=== PATIENT | female | born 1940 | race Caucasian/White ===

== ENCOUNTER 2017-08-03 17:15 | Emergency (ER) | payer MEDICARE ==
--- NOTE | 2017-08-03 18:33 | Diagnostic Imaging Report ---
History:Blurry vision Comparison studies:None Technique: Axial images were obtained from the skull base to the vertex. Coronal and sagittal images reconstructed from the axial data. Intravenous contrast: None Findings: Scalp/skull: No abnormalities. Extra-axial spaces: No masses. No fluid collections. Brain sulci: Mildly prominent. Ventricles: Mild compensatory dilatation. No hydrocephalus. Parenchyma: A few hypodensities in the supratentorial white matter are small vessel ischemic changes. No masses, hemorrhage, acute or chronic cortical vascular insults. Sellar/suprasellar region: No abnormalities. Craniocervical junction: Patent foramen magnum. No Chiari one malformation. Incidental findings: Atherosclerotic calcifications in the carotid siphons . Impression: No acute abnormalities. Chronic findings: 1. Mild generalized volume loss. 2. Mild supratentorial white matter small vessel ischemic changes. A preliminary report was given by neuroradiology fellow Dr. Kennedy at 6:32 PM on 08/03/2017. I have reviewed the images and agree with the findings in the preliminary report. Signed by: Dr. Lauren Canela M.D. on 08/03/2017 10:01 PM
[2017-08-03 19:55] LABS: ALBUMIN 3.8 g/dL (3.5-5.0); ANION GAP 13.5 mmol/L (8-16); CALCIUM 10.5 mg/dL (8.4-10.2); CREATININE, SERUM 1.23 mg/dL (0.57-1.11); POTASSIUM 3.5 mmol/L (3.5-5.1)
[2017-08-03] MEDS ORDERED: KETOROLAC TROMETHAMINE 30 MG/ML VIAL IV STA (21:10)
[2017-08-03] MEDS ORDERED: SODIUM CHLORIDE 0.9% 500ML 500 ML IV ONE (21:15)
== END 2017-08-03 22:10 | disposition home or self-care (01) ==
LOC: ER 17:15
DX: G44.1 Vascular headache, not elsewhere classified (principal)
CPT/HCPCS: 36415; 70450; 80053; 85651; 96360; 96374; 99283; J1885; J7040

== ENCOUNTER 2018-10-04 20:12 | Emergency (ER) | payer MEDICARE ==
[~2018-10-04] VITALS: Ht 165.1 cm; Wt 95.3 kg
--- OUTSIDE RECORDS SUMMARY | 2018-10-04 20:15 | XMS REPORT | Continuity of Care Document ---
Author Author [facility] Interface Address Unknown Phone Unavailable Problems Problem Status Onset Date Classification Date Reported Comments Source Medications Medication Details Route Status Patient Instructions Ordering Provider Order Date Source Allergies, Adverse Reactions, Alerts Substance Category Reaction Severity Reaction type Status Date Reported Comments Source Immunizations Immunization Date Given Site Status Last Updated Comments Source Results Order Name Results Value Reference Range Date Interpretation Comments Source Erythrocyte sedimentation rate by Westergren method Erythrocyte sedimentation rate by Westergren method 3 0 - 20 08/03/2017 [facility] Estimated glomerular filtration rate (GFR) determination Estimated glomerular filtration rate (GFR) determination 42 60 08/03/2017 [facility] Glucose measurement Glucose measurement 127 74 - 118 08/03/2017 [facility] Plasma globulin measurement (mass/volume) Plasma globulin measurement (mass/volume) 3.7 2.3 - 3.5 08/03/2017 [facility] Serum or plasma alanine aminotransferase measurement (enzymatic activity/volume) Serum or plasma alanine aminotransferase measurement (enzymatic activity/volume) 14 0 - 55 08/03/2017 [facility] Serum or plasma albumin measurement (mass/volume) Serum or plasma albumin measurement (mass/volume) 3.8 3.5 - 5.0 08/03/2017 [facility] Serum or plasma albumin/globulin mass ratio Serum or plasma albumin/globulin mass ratio 1.0 0.8 - 2.0 08/03/2017 [facility] Serum or plasma alkaline phosphatase measurement (enzymatic activity/volume) Serum or plasma alkaline phosphatase measurement (enzymatic activity/volume) 85 40 - 150 08/03/2017 [facility] Serum or plasma anion gap Serum or plasma anion gap 13.5 8 - 16 08/03/2017 [facility] Serum or plasma calcium measurement (mass/volume) Serum or plasma calcium measurement (mass/volume) 10.5 8.4 - 10.2 08/03/2017 [facility] Serum or plasma carbon dioxide, total measurement (moles/volume) Serum or plasma carbon dioxide, total measurement (moles/volume) 27 22 - 29 08/03/2017 [facility] Serum or plasma chloride measurement (moles/volume) Serum or plasma chloride measurement (moles/volume) 104 98 - 107 08/03/2017 [facility] Serum or plasma creatinine measurement (mass/volume) Serum or plasma creatinine measurement (mass/volume) 1.23 0.57 - 1.11 08/03/2017 [facility] Serum or plasma potassium measurement (moles/volume) Serum or plasma potassium measurement (moles/volume) 3.5 3.5 - 5.1 08/03/2017 [facility] Serum or plasma protein measurement (mass/volume) Serum or plasma protein measurement (mass/volume) 7.5 6.5 - 8.1 08/03/2017 [facility] Serum or plasma sodium measurement (moles/volume) Serum or plasma sodium measurement (moles/volume) 141 136 - 145 08/03/2017 [facility] Serum or plasma total bilirubin measurement (mass/volume) Serum or plasma total bilirubin measurement (mass/volume) 0.4 0.2 - 1.2 08/03/2017 [facility] Serum or plasma urea nitrogen measurement (mass/volume) Serum or plasma urea nitrogen measurement (mass/volume) 20 7 - 26 08/03/2017 [facility] Serum or plasma urea nitrogen/creatinine mass ratio Serum or plasma urea nitrogen/creatinine mass ratio 16 6 - 25 08/03/2017 [facility] Aspartate Amino Transf (AST/SGOT) 18 5 - 34 08/03/2017 [facility] Vital Signs Vital Sign Value Date Comments Source Encounters Location Location Details Encounter Type Encounter Number Reason For Visit Attending Provider ADM Date DC Date Status Source Departed Emergency Room [id number] BRIAN REAGAN MD 08/03/2017 08/03/2017 [facility] Procedures Procedure Code Date Perfomer Comments Source Computed tomography of brain without radiopaque contrast [id number] 08/03/2017 ABHINAV WESLEY [facility]
--- OUTSIDE RECORDS SUMMARY | 2018-10-04 20:15 | XMS REPORT ---
Author Author [facility] Address Unknown Phone Unavailable Care Team Providers Care Business Banking Manager Name Role Phone Antonio REAGAN Unavailable Unavailable Problems This patient has no known problems. Allergies, Adverse Reactions, Alerts This patient has no known allergies or adverse reactions. Medications This patient has no known medications. Encounters Start Date/Time End Date/Time Encounter Type Admission Type Attending Clinicians Care Facility Care Department Encounter ID 2018-10-04 07:14:00 2018-10-04 07:14:00 Outpatient [facility] 7500 Results Test Description Test Time Test Comments Text Results Atomic Results Result Comments CT BRAIN WO [place] [address] Patient Name: YADIRA CEJA MR #: [id number] : 1940 Age/Sex: 76/F Req #: [id number] Adm Physician: Ordered by: KAREN LA MD Report #: [id number] Location: ER Room/Bed: Procedure: [id number] CT/CT BRAIN WO Exam Date: 08/03/17 Exam Time: 1755 REPORT STATUS: Signed History:Blurry vision Comparison studies:None Technique: Axial images were obtained from the skull base to the vertex. Coronal and sagittal images reconstructed from the axial data. Intravenous contrast: None Findings: Scalp/skull: No abnormalities. Extra-axial spaces: No masses. No fluid collections. Brain sulci: Mildly prominent. Ventricles: Mild compensatory dilatation. No hydrocephalus. Parenchyma: A few hypodensities in the supratentorial white matter are small vessel ischemic changes. No masses, hemorrhage, acute or chronic cortical vascular insults. Sellar/suprasellar region: No abnormalities. Craniocervical junction: Patent foramen magnum. No Chiari one malformation. Incidental findings: Atherosclerotic calcifications in the carotid siphons . Impres duane: No acute abnormalities. Chronic findings: 1. Mild generalized volume loss. 2. Mild supratentorial white matter small vessel ischemic changes. A preliminary report was given by neuroradiology fellow Dr. Kennedy at 6:32 PM on 08/03/2017. I have reviewed the images and agree with the findings in the preliminary report. Signed by: Dr. Lauren Canela M.D. on 08/03/2017 10:01 PM Dictated By: LAUREN CANELA MD 00 Transcribed By: SOURAV on 08/03/172200 COPY TO: KAREN LA MD
[2018-10-04] MEDS ORDERED: METHYLPREDNISOLONE SOD SUCC 125 MG/2ML VIAL IM ONE (21:15)
[2018-10-04] MEDS ORDERED: DIPHENHYDRAMINE HCL 25 MG CAP PO ONE (21:15)
[2018-10-04] MEDS ORDERED: FAMOTIDINE 20 MG TAB PO ONE (21:15)
[2018-10-04 22:41] VITALS: BP 161/69
== END 2018-10-04 22:57 | disposition home or self-care (01) ==
LOC: ER 20:12
DX: R21 Rash and other nonspecific skin eruption (principal); L29.9 Pruritus, unspecified
CPT/HCPCS: 99282; J2930

== ENCOUNTER 2018-12-18 09:55 | Emergency (ER) | payer MEDICARE ==
[~2018-12-18] VITALS: Ht 165.1 cm; Wt 95.3 kg
--- OUTSIDE RECORDS SUMMARY | 2018-12-18 09:58 | XMS REPORT | Continuity of Care Document ---
Author Author [facility] Address Unknown Phone Unavailable Care Team Providers Care Avp Name Role Phone [employer] Unavailable Unavailable Problems No Data Provided for This Section Medications No Data Provided for This Section Allergies, Adverse Reactions, Alerts No Known Medication Allergies Immunizations No Data Provided for This Section Results Order Name Results Value Reference Range Date Interpretation Comments Source Erythrocyte sedimentation rate by Westergren method Erythrocyte sedimentation rate by Westergren method 3 0 - 20 08/03/2017 [facility] Estimated glomerular filtration rate (GFR) determination Estimated glomerular filtration rate (GFR) determination 42 60 08/03/2017 [facility] Glucose measurement Glucose measurement 127 74 - 118 08/03/2017 [facility] Plasma globulin measurement (mass/volume) Plasma globulin measurement (mass/volume) 3.7 2.3 - 3.5 08/03/2017 [facility] Serum or plasma alanine aminotransferase measurement (enzymatic activity/volume) Serum or plasma alanine aminotransferase measurement (enzymatic activity/volume) 14 0 - 55 08/03/2017 [facility] Serum or plasma albumin measurement (mass/volume) Serum or plasma albumin measurement (mass/volume) 3.8 3.5 - 5.0 08/03/2017 [facility] Serum or plasma albumin/globulin mass ratio Serum or plasma albumin/globulin mass ratio 1.0 0.8 - 2.0 08/03/2017 [facility] Serum or plasma alkaline phosphatase measurement (enzymatic activity/volume) Serum or plasma alkaline phosphatase measurement (enzymatic activity/volume) 85 40 - 150 08/03/2017 [facility] Serum or plasma anion gap Serum or plasma anion gap 13.5 8 - 16 08/03/2017 [facility] Serum or plasma calcium measurement (mass/volume) Serum or plasma calcium measurement (mass/volume) 10.5 8.4 - 10.2 08/03/2017 [facility] Serum or plasma carbon dioxide, total measurement (moles/volume) Serum or plasma carbon dioxide, total measurement (moles/volume) 27 22 - 29 08/03/2017 [facility] Serum or plasma chloride measurement (moles/volume) Serum or plasma chloride measurement (moles/volume) 104 98 - 107 08/03/2017 [facility] Serum or plasma creatinine measurement (mass/volume) Serum or plasma creatinine measurement (mass/volume) 1.23 0.57 - 1.11 08/03/2017 [facility] Serum or plasma potassium measurement (moles/volume) Serum or plasma potassium measurement (moles/volume) 3.5 3.5 - 5.1 08/03/2017 [facility] Serum or plasma protein measurement (mass/volume) Serum or plasma protein measurement (mass/volume) 7.5 6.5 - 8.1 08/03/2017 [facility] Serum or plasma sodium measurement (moles/volume) Serum or plasma sodium measurement (moles/volume) 141 136 - 145 08/03/2017 [facility] Serum or plasma total bilirubin measurement (mass/volume) Serum or plasma total bilirubin measurement (mass/volume) 0.4 0.2 - 1.2 08/03/2017 [facility] Serum or plasma urea nitrogen measurement (mass/volume) Serum or plasma urea nitrogen measurement (mass/volume) 20 7 - 26 08/03/2017 [facility] Serum or plasma urea nitrogen/creatinine mass ratio Serum or plasma urea nitrogen/creatinine mass ratio 16 6 - 25 08/03/2017 [facility] Aspartate Amino Transf (AST/SGOT) 18 5 - 34 08/03/2017 [facility] Pathology Reports No Data Provided for This Section Diagnostic Reports No Data Provided for This Section Consultation Notes No Data Provided for This Section Discharge Summaries No Data Provided for This Section History and Physicals No Data Provided for This Section Vital Signs No Data Provided for This Section Encounters Location Location Details Encounter Type Encounter Number Reason For Visit Attending Provider ADM Date DC Date Status Source Departed Emergency Room [id number] BRIAN REAGAN MD 08/03/2017 08/03/2017 [facility] Registered Emergency Room [id number] NERY VICTORIA MD 10/04/2018 [facility] Procedures Procedure Code Date Perfomer Comments Source Computed tomography of brain without radiopaque contrast [id number] 08/03/2017 ABHINAV [facility] Assessment and Plan No Data Provided for This Section Plan of Care Plan of Care Date Source Discharge Date 10/04/18 10:57pm Disposition HOME, SELF-CARE Condition at Discharge Stable Instructions/Education Provided Allergic Reaction Forms Provided Work/School Excuse Prescriptions See Medication Section Additional Instructions/Education take all medications as indicated follow up with form setter [employer] forms of choice follow up with your primary care doctor avoid seafood containing iodine- shrimp, crawfish. 10/04/2018 [facility] Discharge Date 08/03/17 10:10pm Disposition HOME, SELF-CARE Condition at Discharge Improved Instructions/Education Provided Headache Forms Provided Work/School Excuse Prescriptions See Medication Section Additional Instructions/Education TAKE TYLENOL AND/OR ADVIL DIRECTED ON LABEL FOR PAIN FOLLOW-UP WITH YOUR PRIMARY CARE PROVIDER, CALL FOR APPOINTMENT 08/03/2017 [facility] Social History Social History Date Source Smoking Status Start Date Stop Date Never Smoker 10/04/2018 [facility] Family History No Data Provided for This Section Advance Directives Order Name Results Value Date Source Advance Directives Advance Directives Directive Response Recorded Date/Time Does the patient have an advance directive? No 08/03/17 8:30pm If yes, is advance directive on file with [facility]? No 08/03/17 8:30pm If not on file with [facility] will patient provide a copy? Yes 08/03/17 8:30pm 10/04/2018 [facility] Advance Directives Advance Directives Directive Response Recorded Date/Time Does the patient have an advance directive? No 08/03/17 8:30pm If yes, is advance directive on file with [facility]? No 08/03/17 8:30pm If not on file with [facility] will patient provide a copy? Yes 08/03/17 8:30pm Do you have a Directive to Physician? No 08/03/17 8:30pm Do you have a Medical Power of Heavy Equipment Rental Associate? No 08/03/17 8:30pm Do you have an out of hospital Do Not Resuscitate Order? No 08/03/17 8:30pm Do you have any special needs we should be aware of? No 08/03/17 8:30pm Do you have a support person here with you today? Yes 08/03/17 8:30pm Did patient receive Notice of Privacy Practices? Yes 08/03/17 8:30pm Did patient receive patient rights and responsibilities? Yes 08/03/17 8:30pm 08/03/2017 [facility] Functional Status No Data Provided for This Section
--- NOTE | 2018-12-18 11:06 | Diagnostic Imaging Report ---
CT BRAIN WO HISTORY: Right facial weakness COMPARISON: Head CT 08/03/2017 Technique: Noncontrast axial scans were obtained from skull base to the vertex. Coronal and sagittal reconstructions obtained from the axial data. One or more of the following dose reduction techniques were used: Automated exposure control, adjustment of the mA and/or kV according to patient size, and/or utilization of iterative reconstruction technique. DISCUSSION: Scalp/Skull: Unremarkable. Brain sulci: Mildly prominent. Ventricles: Compensatory dilatation. Extra-axial spaces: No masses or fluid collections. Carotid siphon calcifications are present. Parenchyma: Mild bilateral deep white matter hypodensity is likely chronic microvascular ischemic change. Otherwise, no masses, hemorrhage, or large vascular territory acute infarct. Dural sinuses: No abnormal densities. Sellar/Suprasellar region: Intact. Skull base: Intact. Incidental findings: None. IMPRESSION: 1. No acute intracranial abnormalities. 2. Mild supratentorial chronic microvascular ischemic change. Mild generalized cerebral volume loss. Signed by: Dr. Santhosh Strauss M.D. on 12/18/2018 11:03 AM
[2018-12-18 12:48] VITALS: BP 127/66
== END 2018-12-18 13:06 | disposition home or self-care (01) ==
LOC: ER 09:55
DX: G51.0 Bell's palsy (principal); I10 Essential (primary) hypertension; E11.9 Type 2 diabetes mellitus without complications; I25.10 Atherosclerotic heart disease of native coronary artery without angina pectoris; E03.9 Hypothyroidism, unspecified
CPT/HCPCS: 70450; 93005; 99283